=== PATIENT | male | born 2000 | race Caucasian/White ===

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

== ENCOUNTER 2018-02-24 11:22 | Emergency (ER) | payer OTHER ==
[2018-02-24 11:38] VITALS: BP 115/75
--- NOTE | 2018-02-24 12:00 | EDPHY ---
H & P Stated Complaint: L ear pain - Medical/Surgical History Hx Asthma: No Hx Chronic Respiratory Disease: No Hx Diabetes: No Hx Cardiac Disease: No Hx Renal Disease: No Hx Cirrhosis: No Hx Alcoholism: No Hx HIV/AIDS: No Hx Splenectomy or Spleen Trauma: No Other PMH: denies - Social History Smoking Status: Never smoked Time Seen by Provider: 02/24/18 11:35 HPI/ROS: Chief complaint: Left ear discomfort History of present illness: This is a 17-year-old male who presents to the emergency department for left ear discomfort. He reports the onset of symptoms this morning. He describes a pressure. He is concerned he got water in the ear. He denies other associated signs or symptoms including no discharge from the ear, no changes in hearing, no fever other cold symptoms. (Yimi Hernandez) - Physical Exam Exam: General: Alert, nontoxic. Eyes: PERRLA. No injection. No discharge. ENT: Left external auditory canal has some erythema and edema although it is not uniform. It does extend around towards the tympanic membrane. Tympanic membrane appears intact. The rest of the ears unremarkable. Right ear unremarkable. Nasopharynx is not injected. There is no rhinorrhea. Oropharynx is not injected. There is no edema. There is no exudate. There is no asymmetry. The uvula is midline. No elevation of the tongue. There is no hoarseness, no drooling, no trismus, no stridor. Skin: No erythema or edema of the face, no abnormal rashes. (Yimi Hernandez) Constitutional: Initial Vital Signs Temperature (C) 36.8 C 02/24/18 11:37 Heart Rate 79 02/24/18 11:37 Respiratory Rate 16 02/24/18 11:37 Blood Pressure 115/75 02/24/18 11:37 O2 Sat (%) 97 02/24/18 11:37 O2 Delivery Mode Room Air Allergies/Adverse Reactions: No Known Allergies Allergy (Unverified 02/24/18 11:37) Home Medications: Medication Instructions Recorded Neomy Sulf/Polymyx B Sulf/Hc 4 drops OT TID #1 otic.btl 02/24/18 [Cortisporin Otic Suspension] Medical Decision Making ED Course/Re-evaluation: Patient seen under the supervision of my secondary supervising physician Dr. Yifan Delgado. Patient presents to the emergency department for evaluation of left ear discomfort. Does appear to be developing an otitis externa. I will place him on Cortisporin otic. He can follow up with [facility]. He did request referral to another doctor as the co-pay at [facility] can be quite high. I referred him to ENT. Home care is discussed. Return precautions are given. The patient voiced understanding and agreement with plan. (Yimi Hernandez) Differential Diagnosis: Included but not limited to otitis media, otitis externa, unlikely mastoiditis ( Yimi Hernandez) Other Provider: PHYSICIAN DOCUMENTATION: The patient was evaluated and managed by the Physician [employer]. My co- signature indicates that I have reviewed this chart and I agree with the findings and plan of care as documented. I am the secondary supervising physician. (Emeterio Delgado) Departure - Departure Disposition: Home, Routine, Self-Care Condition: Good Instructions: Otitis Externa (ED) Additional Instructions: Follow-up with your primary care doctor or an ENT doctor for continued evaluation and care If symptoms worsen or new symptoms develop return to the emergency department for recheck Referrals: Celso Childers MD [Primary Care Provider] - As per Instructions Jillian Bryan MD [Medical Doctor] - As per Instructions Prescriptions: Neomy Sulf/Polymyx B Sulf/Hc [Cortisporin Otic Suspension] 4 drops OT TID #1 otic.btl
== END 2018-02-24 12:05 | disposition home or self-care (01) ==
DX: H60.92 Unspecified otitis externa, left ear (principal)